=== PATIENT | male | born 1980 | race African-American/Black ===

== ENCOUNTER 2024-04-26 19:16 | Emergency (ER) | payer OTHER, SELFPAY ==
[2024-04-26 19:30] VITALS: BP 136/85; PULSE 92; RESP 16; TEMP 36.6; O2SAT 99
--- NOTE | 2024-04-26 19:35 | ED.URI ---
HPI - URI/Sore Throat General Chief Complaint: Upper Respiratory Infection Stated Complaint: Headache/Bodyaches Time Seen by Provider: 04/26/24 20:02 Source: patient, RN notes reviewed and old records reviewed Mode of arrival: ambulatory Limitations: no limitations History of Present Illness HPI Narrative: patient presents his and daughter. All members household have reportedly been sick. Patient states he began with flu-like symptoms for 5 days ago. He has had fever, chills, sweats, body aches. He reports that at this time his most concerning symptom is cough with wheezing and sputum production. He reports pain is worse with coughing. He has been taking [id number] medications for his symptoms with moderate relief Related Data Allergies Allergy/AdvReac Type Severity Reaction Status Date / Time No Known Allergies Allergy Verified 04/26/24 20:01 Review of Systems Review of Systems: All systems reviewed & are unremarkable except as noted in HPI and below Constitutional: Constitutional: Reports no additional constitutional complaints, Reports body ache(s), Reports chills, Reports excessive sweating, Reports fever(s), Reports headache(s), Reports lethargy and Reports poor appetite ENT: Reports system reviewed and no additional complaints, except as documented, Reports nasal congestion, Reports nasal discharge and Reports sore throat Cardiovascular: Cardiovascular: Reports no additional cardiovascular complaints Respiratory: Respiratory: Reports no additional respiratory complaints, Reports change in phlegm color, Reports chest congestion, Reports cough, Reports excessive phlegm production and Reports wheezing Gastrointestinal: Gastrointestinal: Reports no additional gastrointestinal complaints PMFSH Comments At the time of my signature, I reviewed and agree with the nursing past medical, surgical, social, and family history. There is no relevant family history pertinent to the patient complaint. Exam Const: General: cooperative, no acute distress, alert, awake and uncomfortable Orientation/consciousness: oriented to person, oriented to place and oriented to time HENMT: Head: normal to inspection Ears: TM's normal bilaterally Mouth: Yes moist mucous membranes Resp: Effort & Inspection: normal respiratory effort and able to speak in complete sentences Auscultation: clear to auscultation bilaterally, no crackles, no rales, no rhonchi and wheezes scattered wheezes Cardio: Palpation: normal PMI Rate: regular rate Rhythm: regular rhythm Heart sounds: S1 normal heart sound present and S2 normal heart sound present Neuro: General: oriented to person, oriented to place and oriented to time Cranial nerves: Yes CN's II-XII intact bilaterally Psych: Appearance: grossly normal Thought process: Normal thought process present Insight: Good insight present (Psych) Judgement: Good judgement present (Psych) Course Course Level of Care: Express Care Visit Vital Signs Vital signs: Vital Signs Temperature 97.9 F 04/26/24 19:30 Pulse Rate 92 04/26/24 19:30 Respiratory Rate 16 04/26/24 19:30 Blood Pressure 136/85 04/26/24 19:30 Pulse Oximetry 99 04/26/24 19:30 Oxygen Delivery Room Air 04/26/24 19:30 Temperature 97.9 F 04/26/24 19:30 Pulse Rate 92 04/26/24 19:30 Respiratory Rate 16 04/26/24 19:30 Blood Pressure 136/85 04/26/24 19:30 Pulse Oximetry 99 04/26/24 19:30 Oxygen Delivery Room Air 04/26/24 19:30 Reviewed MDM - URI/Sore Throat MDM Narrative Medical decision making narrative: patient with positive flu. Does have Mild scattered wheezing, no respiratory distress. positive flu. Started azithromycin as likely has secondary bacterial infection. Albuterol inhaler. Patient advised to continue with over the counter medications for fever and body aches. Emergency department precautions discussed. Discharge instructions reviewed with patient, as well as provided in writing per nursing staff. The instructions also include specific and strict return/GO TO THE ER as well as f/u information. All questions have been answered, and the patient deny any further questions with discharge and discharge plan. Some parts of this dictation were generated by voice recognition software and may contain typographical and/or grammatical inaccuracies. Differential Diagnosis Differential diagnosis: Likely upper respiratory infection, viral infection, bronchitis and influenza Medical Records Attestation: I reviewed the patient's medical records. Lab Data Attestation: I reviewed the patient's lab results. Labs: Lab Results 04/26/24 Range/Units 19:35 POC Influenza A Ag Positive (Negative) POC Influenza B Ag Negative (Negative) POC SARS CoV-2 Ag Negative (Negative) Discharge Plan Discharge Clinical Impression: Influenza Patient Disposition: Home, Self-Care Condition: Stable Instructions: Antibiotic Form, Influenza (ED) Additional Instructions: Take medications as prescribed. Follow with primary care provider. Emergency department for new or worse symptoms. Azithromycin will not help with the flu, you were prescribed this today because you had some abnormal lung sounds. Patient Language: Israeli Prescriptions: New azithromycin 250 mg tablet See Rx Instructions .ROUTE .COMPLEX Qty: 6 0RF Rx Instructions: For 250 mg dose pack: take 500 mg today (day 1), then 250 mg for 4 days (days 2-5) albuterol sulfate [Ventolin HFA] 90 mcg/actuation HFA aerosol inhaler 2 puff inhalation QID PRN (Reason: shortness of breath or wheezing) Qty: 8.5 0RF Follow-up/Referrals: PHYSICIAN,GUIDE CHANGER [Primary Care Provider] - Stand Alone Forms: Work/School Release IP Time of Disposition: 20:08
[2024-04-26 19:53] LABS: EDCOVIDSCREEN Negative (Negative); EDINFLUASCREEN Positive (Negative); EDINFLUBSCREEN Negative (Negative)
== END 2024-04-26 20:10 | disposition home or self-care (01) ==
PROVIDERS: Emergency Provider Nurse Practitioner Family
DX: J10.1 Influenza due to other identified influenza virus with other respiratory manifestations (principal); Z20.822 Contact with and (suspected) exposure to COVID-19
CPT/HCPCS: 87426; 87804; 99203; G0463